=== PATIENT | female | born 1985 | race African-American/Black ===

== ENCOUNTER 2019-11-24 09:22 | Emergency (ER) | payer MEDICAID ==
[~2019-11-24] VITALS: Ht 162.6 cm; Wt 84.0 kg
[2019-11-24 09:26] VITALS: BP 131/57
[2019-11-24] MEDS ORDERED: ACETAMINOPHEN 325MG TABLET PO ONE (09:45)
== END 2019-11-24 10:50 | disposition home or self-care (01) ==
LOC: ER 09:22
DX: M25.521 Pain in right elbow (principal); F20.9 Schizophrenia, unspecified; F32.9 Major depressive disorder, single episode, unspecified; Z90.49 Acquired absence of other specified parts of digestive tract
CPT/HCPCS: 73080; 99285

== ENCOUNTER 2020-10-19 19:08 | Emergency (ER) | payer MEDICAID ==
[~2020-10-19] VITALS: Ht 167.6 cm; Wt 64.0 kg
[2020-10-19] MEDS ORDERED: ZIPRASIDONE HCL 20MG CAPSULE PO STA (22:43)
[2020-10-19 23:18] LABS: BASOPHILS % 1.2 % (0.0-2.0); EOSINOPHILS % 0.8 % (0.0-5.0); HEMATOCRIT. 31.8 % (36.0-48.0); HEMOGLOBIN. 10.6 g/dL (12.0-16.0); LYMPHOCYTES % 41.9 % (20.0-50.0); MEAN CORPUSCULAR HEMOGLOBIN 29.3 pg (28.0-32.0); MEAN CORPUSCULAR VOLUME 88.2 fL (81.0-99.0); MEAN PLATELET VOLUME 8.3 fl (7.4-10.4); MONOCYTES % 8.3 % (2.0-8.0); NEUTROPHILS % 47.8 % (40.0-76.0); PLATELET 288 x1000/uL (130-400); RED BLOOD CELL COUNT 3.61 mill/uL (4.2-5.4); RED CELL DISTRIBUTION WIDTH 15.5 % (11.6-14.6)
[2020-10-19 23:24] LABS: CHLORIDE 109 mEq/L (98-107)
[2020-10-19 23:32] LABS: ETHANOL BLOOD < 10 mg/dL
[2020-10-20 00:06] LABS: HCG SCREEN NEGATIVE
[2020-10-20 06:48] LABS: CLARITY URINE CLOUDY (CLEAR); COLOR URINE YELLOW (YELLOW); KETONES URINE TRACE (NEGATIVE); LEUKOCYTE ESTERASE URINE NEGATIVE (NEGATIVE); NITRITE URINE NEGATIVE (NEGATIVE); OCCULT BLOOD URINE 3+ (NEGATIVE); PH URINE 5.5 (4.5-8.0); PROTEIN URINE 1+ (NEGATIVE); SPECIFIC GRAVITY URINE 1.027 (1.005-1.030)
[2020-10-20 07:02] LABS: *BARBITURATES SCREEN URINE NEGATIVE (NEGATIVE); *BENZODIAZEPINES SCREEN URINE NEGATIVE (NEGATIVE); *COCAINE SCREEN URINE NEGATIVE (NEGATIVE); OPIATES URINE SCREEN NEGATIVE (NEGATIVE)
[2020-10-20 07:03] LABS: METHADONE URINE SCREEN NEGATIVE (NEGATIVE); PHENCYCLIDINE URINE SCREEN NEGATIVE (NEGATIVE)
[2020-10-20 07:07] LABS: *AMPHETAMINES SCREEN URINE PRESUMTIVE POSITIVE (NEGATIVE); CANNABINOID URINE SCREEN PRESUMTIVE POSITIVE (NEGATIVE)
[2020-10-20] MEDS ORDERED: LORAZEPAM 2MG/ML CPJ IM ONE (08:00)
[2020-10-20] MEDS ORDERED: OLANZAPINE 10 MG/VIAL IM ONE (08:00)
[2020-10-20 08:35] VITALS: BP 130/78
== END 2020-10-20 09:44 | disposition left against medical advice (07) ==
LOC: ER 19:08
DX: R45.851 Suicidal ideations (principal); R44.0 Auditory hallucinations; Z88.2 Allergy status to sulfonamides
CPT/HCPCS: 36415; 80053; 80305; 80307; 80320; 80329; 81003; 81025; 84703; 85025; 99285; Z7610; J2060; J3490; G0480

== ENCOUNTER 2021-02-17 03:28 | Emergency (ER) | payer MEDICAID ==
[~2021-02-17] VITALS: Ht 162.6 cm; Wt 66.0 kg
[2021-02-17] MEDS ORDERED: BENZ1LOZ60 MT (04:07)
[2021-02-17] MEDS ORDERED: GUAIFENESIN-DM 200MG-20MG/10ML UDC PO ONE (04:15)
[2021-02-17 04:20] VITALS: BP 127/85
== END 2021-02-17 04:21 | disposition home or self-care (01) ==
LOC: ER 03:28
DX: J06.9 Acute upper respiratory infection, unspecified (principal); R05 Cough; F41.9 Anxiety disorder, unspecified; F32.9 Major depressive disorder, single episode, unspecified; F15.10 Other stimulant abuse, uncomplicated; F12.10 Cannabis abuse, uncomplicated; Z20.822 Contact with and (suspected) exposure to COVID-19
CPT/HCPCS: 99281

== ENCOUNTER 2023-04-04 19:18 | Emergency (ER) | payer BC, MEDICAID ==
[~2023-04-04] VITALS: Ht 162.6 cm; Wt 66.0 kg
[~2023-04-04 19:18] MED LIST: BENZ1LOZ73 MT
[2023-04-04 19:33] VITALS: BP 151/98; PULSE 96; RESP 18; TEMP 98.5; O2SAT 100
[2023-04-04] MEDS ORDERED: IBUP-2029 MT (21:07)
[2023-04-04] MEDS ORDERED: AMOX500T2 MT (21:07)
[2023-04-04] MEDS ORDERED: IBUPROFEN 600MG TABLET PO ONE (21:15)
[2023-04-04] MEDS ORDERED: IBUPROFEN 600MG TABLET PO NR (23:30)
== END 2023-04-04 23:26 | disposition home or self-care (01) ==
LOC: ER 19:18
DX: K08.89 Other specified disorders of teeth and supporting structures (principal); Z90.49 Acquired absence of other specified parts of digestive tract
CPT/HCPCS: 99282